=== PATIENT | male | born 1930 | race Caucasian/White ===

== ENCOUNTER 2018-05-08 08:43 | Emergency (ER) | payer OTHER ==
[2018-05-08 09:09] LABS: Absolute Lymphocytes (CBC) 2.2 K/uL (0.7-4.9); Absolute Monocytes 0.7 K/uL (0.1-1.3); Absolute Neutrophil 6.5 K/uL (1.8-8.0); Basophils % 0.4 % (0-1.3); Eosinophils % 1.4 % (0-4.4); Lymphocytes % 22.9 % (15.3-44.8); MCV 96.4 fL (80-100); Monocytes % 7.7 % (3.3-12.3); Protime INR 1.21; RBC Red Blood Cell Count 4.05 M/uL (4.33-5.43)
[2018-05-08 09:20] LABS: Albumin 3.5 g/dL (3.4-5.0); Bilirubin Direct 0.2 mg/dL (0-0.2); Bilirubin Total 0.7 mg/dL (0.2-1.0); Magnesium 2.3 mg/dL (1.8-2.4); Potassium 3.9 mmol/L (3.5-5.1); Protein, Total 7.2 g/dL (6.4-8.2)
--- NOTE | 2018-05-08 11:42 | RAD REPORT ---
EXAM DESCRIPTION: RAD - Chest Single View - 05/08/2018 9:05 am CLINICAL HISTORY: CHEST PAIN Chest pain. COMPARISON: CHEST PA AND LAT 2 VIEW dated 09/04/2015; CHEST SINGLE VIEW dated 12/09/2014; CHEST SINGLE VIEW dated 09/18/2010; CHEST PA AND LAT 2 VIEW dated 08/21/2010 FINDINGS: Portable technique limits examination quality. The lungs are grossly clear. The heart is mildly prominent size with sternotomy wires present. No dis placed fractures. IMPRESSION: No acute intrathoracic process suspected.
--- NOTE | 2018-05-08 11:51 | ER ---
Nurse's Notes [facility] Name: Bandar Meeks Age: 87 yrs Sex: Male : 1930 Arrival Date: 05/08/2018 Time: 08:47 Bed 5 Private MD: Diagnosis: Chest pain, unspecified Presentation: 05/08 08:48 Presenting complaint: Patient states: started having chest pain that radiates into left iw jaw about 30 minutes ago. Transition of care: patient was not received from another setting of care. Onset of symptoms was May 08, 2018. Risk Assessment: Do you want to hurt yourself or someone else? Patient reports no desire to harm self or others. Initial Sepsis Screen: Does the patient meet any 2 criteria? No. Patient's initial sepsis screen is negative. Does the patient have a suspected source of infection? No. Patient's initial sepsis screen is negative. Care prior to arrival: None. 08:48 Method Of Arrival: Ambulatory iw 08:48 Acuity: FADIA 3 iw Triage Assessment: 08:48 General: Appears in no apparent distress. uncomfortable, Behavior is calm, cooperative, hj appropriate for age. Pain: Complains of pain in chest Pain radiates to left jaw. EENT: No signs and/or symptoms were reported regarding the EENT system. Neuro: Level of Consciousness is awake, alert, obeys commands, Oriented to person, place, time, situation, Appropriate for age. Cardiovascular: Capillary refill < 3 seconds Patient's skin is warm and dry. Respiratory: Airway is patent Respiratory effort is even, unlabored, Respiratory pattern is regular, symmetrical. GI: No signs and/or symptoms were reported involving the gastrointestinal system. : No signs and/or symptoms were reported regarding the genitourinary system. Derm: No signs and/or symptoms reported regarding the dermatologic system. Musculoskeletal: No signs and/or symptoms reported regarding the musculoskeletal system. 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 - Social history:: Smoking status: Patient/guardian denies using tobacco, Patient uses alcohol. - Ebola Screening: : Patient negative for fever greater than or equal to 101.5 degrees Fahrenheit, and additional compatible Ebola Virus Disease symptoms Patient denies exposure to infectious person Patient denies travel to an Ebola-affected area in the 21 days before illness onset. Screenin:48 Abuse screen: Denies threats or abuse. Denies injuries from another. Nutritional hj screening: No deficits noted. Tuberculosis screening: No symptoms or risk factors identified. Fall Risk None identified. Assessment: 08:48 Pain: Pain began 30 min ago. hj 10:00 Reassessment: Patient appears in no apparent distress at this time. Patient is resting, ae1 states he feels a little pain on his left chin but states he does not need pain medication at this time. 10:36 Reassessment: Patient and/or family updated on plan of care and expected duration. Pain ae1 level reassessed. Patient states feeling better. 11:30 Reassessment: Provider notified of low HR of 36, new orders received. ae1 12:10 Reassessment: Provider notified of orthostatics results. Ok to discharge per provider. ae1 Vital Signs: 08:51 BP 125 / 58; Pulse 42; Resp 16 S; Pulse Ox 99% on R/A; iw 09:08 BP 122 / 61; Pulse 40; Resp 18; Pulse Ox 98% on R/A; hj 09:46 BP 113 / 67; Pulse 45; Resp 18; Pulse Ox 97% on R/A; hj 10:33 BP 129 / 51; Pulse 40; Resp 16; Temp 97.8(O); Pulse Ox 100% on R/A; Weight 74.84 kg (R);ae1 10:45 BP 128 / 52; Pulse 40; Resp 12; Pulse Ox 99% on R/A; ae1 11:15 BP 120 / 55; Pulse 40; Resp 12; Pulse Ox 100% on R/A; ae1 11:30 BP 137 / 58; Pulse 41; Resp 15; Pulse Ox 100% on R/A; ae1 11:45 BP 138 / 55 Supine; Pulse 36; Resp 15; Pulse Ox 100% on R/A; ae1 11:58 BP 146 / 54 Sitting; Pulse 40; Resp 13; Pulse Ox 100% on R/A; ae1 12:02 BP 132 / 87 Sitting; Pulse 40; Resp 18; Pulse Ox 100% on R/A; ae1 12:05 BP 157 / 55 Standing; Pulse 45; Resp 16; Pulse Ox 100% on R/A; ae1 ED Course: 08:47 Patient arrived in ED. iw 08:48 Triage completed. iw 08:48 Arm band placed on right wrist. hj 08:48 Patient has correct armband on for positive identification. Placed in gown. Bed in low hj position. Call light in reach. Side rails up X 1. 08:48 bus monitor on. Pulse ox on. NIBP on. hj 08:48 Patient maintains SpO2 saturation greater than 95% on room air. hj 08:50 Syed Jo MD is Attending Physician. gs 08:50 Initial lab(s) drawn, by me, sent to lab. Inserted saline lock: 20 gauge in right em forearm, using aseptic technique. Blood collected. 08:51 Emir Brown RN is Primary Nurse. hj 09:03 XRAY Chest (1 view) In Process Unspecified. EDMS 09:59 Report given to MARCOS Serna. hj 10:32 Zane Coats, RN is Primary Nurse. ae1 12:22 No provider procedures requiring assistance completed. IV discontinued, intact, ae1 bleeding controlled, No redness/swelling at site. Pressure dressing applied. Administered Medications: No medications were administered Outcome: 11:51 Discharge ordered by . gs 12:22 Patient left the ED. ae1 12:22 Discharged to home ambulatory. ae1 12:22 Condition: stable 12:22 Discharge instructions given to patient, Instructed on discharge instructions, follow up and referral plans. Demonstrated understanding of instructions. Signatures: Dispatcher [employer] EDMS Miguel Pan, FUR REMODELER FUR REMODELER em Ronna Aaron RN RN Emir Brown RN RN Zane Coats RN RN ae1 Syed Jo MD MD Corrections: (The following items were deleted from the chart) 12:30 12:28 Reassessment: Provider notified of low HR of 36, new orders received. ae1 ae1
--- NOTE | 2018-05-08 11:51 | EDPHYS ---
Physician Documentation [facility] Name: Bandar Meeks Age: 87 yrs Sex: Male : 1930 Arrival Date: 05/08/2018 Time: 08:47 Bed 5 Private MD: ED Physician Syed Jo HPI: 05/08 11:45 This 87 yrs old Male presents to ER via Ambulatory with complaints of Chest gs Pain. 11:45 The patient or guardian reports chest pain that is located primarily in the anterior gs chest wall. Onset: this morning. The pain radiates to Associated signs and symptoms: Pertinent negatives: shortness of breath. The chest pain is described as dull. Duration: The patient or guardian reports multiple episodes, that wax and wane. Modifying factors: The symptoms are alleviated by nothing. the symptoms are aggravated by nothing. Severity of pain: At its worst the pain was mild in the emergency department the pain is unchanged. The patient has experienced similar episodes in the past, a few times. 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 - Social history:: Smoking status: Patient/guardian denies using tobacco, Patient uses alcohol. - Ebola Screening: : Patient negative for fever greater than or equal to 101.5 degrees Fahrenheit, and additional compatible Ebola Virus Disease symptoms Patient denies exposure to infectious person Patient denies travel to an Ebola-affected area in the 21 days before illness onset. ROS: 11:45 All other systems are negative. gs Exam: 11:45 Head/Face: Normocephalic, atraumatic. Eyes: Pupils equal round and reactive to light, gs extra-ocular motions intact. Lids and lashes normal. Conjunctiva and sclera are non-icteric and not injected. Cornea within normal limits. Periorbital areas with no swelling, redness, or edema. ENT: Nares patent. No nasal discharge, no septal abnormalities noted. Tympanic membranes are normal and external auditory canals are clear. Oropharynx with no redness, swelling, or masses, exudates, or evidence of obstruction, uvula midline. Mucous membranes moist. Neck: Trachea midline, no thyromegaly or masses palpated, and no cervical lymphadenopathy. Supple, full range of motion without nuchal rigidity, or vertebral point tenderness. No Meningismus. Chest/axilla: Normal chest wall appearance and motion. Nontender with no deformity. No lesions are appreciated. Cardiovascular: Regular rate and rhythm with a normal S1 and S2. No gallops, murmurs, or rubs. Normal PMI, no JVD. No pulse deficits. Respiratory: Lungs have equal breath sounds bilaterally, clear to auscultation and percussion. No rales, rhonchi or wheezes noted. No increased work of breathing, no retractions or nasal flaring. Abdomen/GI: Soft, non-tender, with normal bowel sounds. No distension or tympany. No guarding or rebound. No evidence of tenderness throughout. Back: No spinal tenderness. No costovertebral tenderness. Full range of motion. Skin: Warm, dry with normal turgor. Normal color with no rashes, no lesions, and no evidence of cellulitis. MS/ Extremity: Pulses equal, no cyanosis. Neurovascular intact. Full, normal range of motion. Neuro: Awake and alert, GCS 15, oriented to person, place, time, and situation. Cranial nerves II-XII grossly intact. Motor strength 5/5 in all extremities. Sensory grossly intact. Cerebellar exam normal. Normal gait. 11:45 Constitutional: The patient appears alert, awake. 11:45 ECG was reviewed by the Attending Physician. Vital Signs: 08:51 BP 125 / 58; Pulse 42; Resp 16 S; Pulse Ox 99% on R/A; iw 09:08 BP 122 / 61; Pulse 40; Resp 18; Pulse Ox 98% on R/A; hj 09:46 BP 113 / 67; Pulse 45; Resp 18; Pulse Ox 97% on R/A; hj 10:33 BP 129 / 51; Pulse 40; Resp 16; Temp 97.8(O); Pulse Ox 100% on R/A; Weight 74.84 kg (R);ae1 10:45 BP 128 / 52; Pulse 40; Resp 12; Pulse Ox 99% on R/A; ae1 11:15 BP 120 / 55; Pulse 40; Resp 12; Pulse Ox 100% on R/A; ae1 11:30 BP 137 / 58; Pulse 41; Resp 15; Pulse Ox 100% on R/A; ae1 11:45 BP 138 / 55 Supine; Pulse 36; Resp 15; Pulse Ox 100% on R/A; ae1 11:58 BP 146 / 54 Sitting; Pulse 40; Resp 13; Pulse Ox 100% on R/A; ae1 12:02 BP 132 / 87 Sitting; Pulse 40; Resp 18; Pulse Ox 100% on R/A; ae1 12:05 BP 157 / 55 Standing; Pulse 45; Resp 16; Pulse Ox 100% on R/A; ae1 MDM: 08:50 Patient medically screened. 11:45 Differential diagnosis: abnormal EKG, acute myocardial infarction, chest wall pain, gs stable angina, unstable angina. Data reviewed: vital signs, nurses notes. 11:45 Physician consultation: Rodrigue Tolliver MD and will see patient in ED. 05/08 08:50 Order name: Basic Metabolic Panel; Complete Time: 09:36 05/08 08:50 Order name: CBC with Diff; Complete Time: 09:36 05/08 08:50 Order name: LFT's; Complete Time: 09:36 05/08 08:50 Order name: Magnesium; Complete Time: 09:36 05/08 08:50 Order name: NT PRO-BNP; Complete Time: 09:37 05/08 08:50 Order name: PT-INR; Complete Time: 09:36 05/08 08:50 Order name: Troponin (emerg Dept Use Only); Complete Time: 09:37 05/08 08:50 Order name: XRAY Chest (1 view); Complete Time: 11:44 05/08 08:50 Order name: EKG; Complete Time: 08:51 05/08 08:50 Order name: Cardiac monitoring; Complete Time: 08:51 05/08 08:50 Order name: EKG - Nurse/Tech; Complete Time: 08:52 05/08 08:50 Order name: IV Saline Lock; Complete Time: 09:11 05/08 08:50 Order name: Labs collected and sent; Complete Time: 09:11 05/08 10:19 Order name: Troponin I; Complete Time: 11:44 05/08 08:50 Order name: O2 Per Protocol; Complete Time: 08:56 gs 05/08 08:50 Order name: O2 Sat Monitoring; Complete Time: 08:52 EC:45 Rate is 46 beats/min. Rhythm is regular, Sinus bradycardia. QRS interval is prolonged. gs T waves are Flattened. Clinical impression: NSR w/ Non-specific ST/T Changes. Interpreted by me. Administered Medications: No medications were administered Disposition: 05/08/18 11:51 Discharged to Home. Impression: Chest pain, unspecified. - Condition is Stable. - Discharge Instructions: Nonspecific Chest Pain. - Medication Reconciliation Form, Thank You Letter, Antibiotic Education, Prescription Opioid Use form. - Follow up: Private Physician; When: 2 - 3 days; Reason: Re-evaluation by your physician. Signatures: Dispatcher [employer] EDMS Ronna Aaron RN RN Emir Brown RN RN Zane Coats RN RN ae1 Syed Jo MD MD Corrections: (The following items were deleted from the chart) 12:22 11:51 05/08/2018 11:51 Discharged to Home. Impression: Chest pain, unspecified. ae1 Condition is Stable. Forms are Medication Reconciliation Form, Thank You Letter, Antibiotic Education, Prescription Opioid Use. Follow up: Private Physician; When: 2 - 3 days; Reason: Re-evaluation by your physician. gs
[2018-05-08 12:29] VITALS: BP 129/51; TEMP 97.8; O2SAT 100
--- NOTE | 2018-05-09 09:13 | EKG ---
Test Date: 2018-05-08 Test Time: 08:34:42 Director Of Instruction: MEASUREMENT RESULTS: Intervals: Rate: 46 WY: 162 QRSD: 120 QT: 492 QTc: 430 [place]: P: 33 WY: 162 QRS: -30 T: -30 INTERPRETIVE STATEMENTS: Sinus bradycardia Left axis deviation Intraventricular conduction delay Nonspecific ST and T wave abnormality Abnormal ECG Compared to ECG 12/09/2014 03:54:19 Atrial premature complex(es) no longer present ST (T wave) deviation still present Electronically Signed On 05-09-18 09:12:54 CDT by Rodrigue Tolliver
== END 2018-05-08 12:22 | disposition home or self-care (01) ==
LOC: ER 08:43
DX: R07.9 Chest pain, unspecified (principal); I10 Essential (primary) hypertension; Z95.1 Presence of aortocoronary bypass graft
CPT/HCPCS: 36415; 71045; 80048; 80076; 83735; 83880; 84484; 85025; 85610; 93005; 99285